=== PATIENT | male | born 1965 | race Two or more races ===

== ENCOUNTER 2020-01-12 08:02 | Emergency (ER) | payer SELFPAY ==
[~2020-01-12] VITALS: Ht 182.9 cm; Wt 103.0 kg
[2020-01-12] MEDS ORDERED: IBUPROFEN 600MG TABLET PO STA (08:07)
[2020-01-12] MEDS ORDERED: ACETAMINOPHEN 325MG TABLET PO STA (08:07)
[2020-01-12 08:59] LABS: BASOPHILS % 0.4 % (0.0-2.0); EOSINOPHILS % 0.1 % (0.0-5.0); HEMATOCRIT. 48.3 % (42.0-52.0); HEMOGLOBIN. 16.4 g/dL (14.0-18.0); LYMPHOCYTES % 20.3 % (20.0-50.0); MEAN CORPUSCULAR HEMOGLOBIN 28.5 pg (28.0-32.0); MEAN PLATELET VOLUME 7.3 fl (7.4-10.4); MONOCYTES % 9.5 % (2.0-8.0); NEUTROPHILS % 69.7 % (40.0-76.0); PLATELET 242 x1000/uL (130-400); RED BLOOD CELL COUNT 5.76 mill/uL (4.7-6.1); RED CELL DISTRIBUTION WIDTH 14.1 % (11.6-14.6)
[2020-01-12 09:07] LABS: CHLORIDE 102 mEq/L (98-107)
[2020-01-12 12:00] VITALS: BP 152/72
== END 2020-01-12 12:25 | disposition home or self-care (01) ==
LOC: ER 08:02
DX: J18.9 Pneumonia, unspecified organism (principal); Z03.818 Encounter for observation for suspected exposure to other biological agents ruled out; E78.00 Pure hypercholesterolemia, unspecified; I10 Essential (primary) hypertension
CPT/HCPCS: 36415; 71045; 80053; 85025; 87635; 87804; 93005; 99285